=== PATIENT | male | born 2000 | race Caucasian/White ===

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

== ENCOUNTER 2019-02-10 10:14 | Emergency (ER) | payer BC, SELFPAY ==
[2019-02-10 10:15] VITALS: BP 127/78; PULSE 68; RESP 16; TEMP 37.7; O2SAT 97; BMI 24.3
--- NOTE | 2019-02-10 10:31 | ED.VIS.GEN ---
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 Denies: Chills, Fever, Sweats Eyes: Denies: Visual changes - bilaterally, Diplopia ENT: Denies: Rhinorrhea, Sore throat Cardiovascular: Denies: Chest pain, Palpitations Respiratory: Denies: Dyspnea, Cough, Dyspnea on exertion Gastrointestinal: Denies: Abdominal pain, Nausea, Vomiting, Diarrhea, Melena, Hematochezia Genitourinary: Denies: Dysuria, Hematuria, Frequency Musculoskeletal: Denies: Back pain, Extremity Pain Skin: Denies: Rash, Wounds Neurological: Denies: Headache, Weakness, Numbness Physical Exam Vital Signs/Narrative: Vital Signs Temp Pulse Resp BP Pulse Ox 02/10/19 10:15 100 F H 68 16 127/78 H 97 General: Well nourished, Well developed, No Acute Distress Head: Normocephalic, Atraumatic Eyes: Perrl, EOMI ENT: Moist mucous membranes, No rhinorrhea Neck: Supple, Nontender Cardiovascular: Regular rate, Regular rhythm, No murmurs Respiratory: No distress, CTA bilaterally, Chest nontender Abdomen: Soft, Nontender, Nondistended, Normal bowel sounds Back: Nontender, Normal Inspection Extremities: No edema, - - He has some very mild tenderness to the radial side of the wrist his hand function is normal thumb function is normal there is no specific snuffbox tenderness, the forearm and elbow are unremarkable he reports a very distant history possibly is a 3-year-old fracture to the wrist or the elbow left side Skin: Normal color, No rash Neurological: Alert, Oriented x3, Cranial nerves II-XII grossly intact, Normal Strength, Normal Sensation Psychological: Normal affect, Normal Mood Diagnostic/Tx/Re-eval - Medical Decision Making X-rays are obtained per radiology are negative, explained the above to the patient explained the concept of an occult injury is placed in a Velcro wrist splint ice elevation he will follow-up with Dr. Ying on-call for orthopedics the next few days Home stable Final impression Wrist injury left ED Disposition - Plan for ED Patient: Diagnosis: Left wrist injury Instructions: Wrist Sprain Referrals: Care Physician,No Primary [NON-STAFF] - Amari Ying MD [STAFF PHYSICIAN] -
--- NOTE | 2019-02-10 10:40 | RAD_ITS ---
STUDY: X-RAY - LEFT WRIST REASON FOR EXAM: Male, 18 years old. Pain after a fall TECHNIQUE: 4 view(s) of the wrist were obtained. COMPARISON: None. FINDINGS: Normal visualized distal radius and ulna. Normal radiocarpal articulation. Normal distal radioulnar articulation. Normal carpal bones. Normal carpal articulations. Normal carpometacarpal articulation of the thumb. Normal second through fifth carpometacarpal articulations. Normal visualized metacarpal bones. The soft tissue structures are unremarkable. RAD/Wrist min 3 Views IMPRESSION: Normal x-ray examination of the wrist. Electronically Signed: Jabier Perdomo MD at 10:53 EST , Service support ,
== END 2019-02-10 12:59 | disposition home or self-care (01) ==
LOC: ED 11:09
PROVIDERS: Emergency Provider Emergency Medicine; Family Provider Pediatrics; PCP Pediatrics
DX: S69.92XA Unspecified injury of left wrist, hand and finger(s), initial encounter (principal); W19.XXXA Unspecified fall, initial encounter; Y93.9 Activity, unspecified; Y92.9 Unspecified place or not applicable
CPT/HCPCS: 73110; 99283